=== PATIENT | female | born 1995 | race Caucasian/White ===

== ENCOUNTER 2020-07-20 17:04 | Emergency (ER) | payer MEDICAID ==
[2020-07-20] MEDS ORDERED: Amoxicillin/Clavulanate K 875-125 MG Tab PO ONE (17:45)
[2020-07-20] MEDS ORDERED: Ibuprofen 800 MG Tab PO ONE (17:45)
--- NOTE | 2020-07-20 17:46 | EDM.PDOC ---
ED HPI GENERAL MEDICAL PROBLEM - General Chief Complaint: General Stated Complaint: LUMP BEHIND RIGHT EAR CAUSING LOTS OF PAIN Time Seen by Provider: 07/20/20 17:30 Source of Information: Reports: Patient, RN, RN Notes Reviewed History Limitations: Reports: No Limitations - History of Present Illness INITIAL COMMENTS - FREE TEXT/NARRATIVE: Pt presents to ER with c/o that today at work she noticed a lump behind her right ear that is causing discomfort. Pain radiates to posterior right head, right jaw, and a little into the ear. Throbbing dull pain. Rates #8 but did not take anything at work to see if it would help. No fever or chills, denies dental problem or injury. Onset: Today, Gradual Duration: Constant, Getting Worse Location: Reports: Head, Neck Quality: Reports: Ache, Throbbing Severity: Severe Improves with: Reports: None Worsens with: Reports: None Associated Symptoms: Reports: No Other Symptoms Right Posterior Ear Pain Score (Numeric/FACES): 8 - Related Data Allergies Allergy/AdvReac Type Severity Reaction Status Date / Time No Known Allergies Allergy Verified 07/20/20 17:20 Home Meds: Home Meds Sertraline [Zoloft] 50 mg PO DAILY 07/20/20 [History] Past Medical History HEENT History: Reports: None Cardiovascular History: Reports: None Respiratory History: Reports: None Gastrointestinal History: Reports: None Genitourinary History: Reports: None SALES DEVELOPER History: Reports: None, Other (See Below) Other SALES DEVELOPER History: 07/06/2020 Musculoskeletal History: Reports: None Neurological History: Reports: None Psychiatric History: Reports: Depression Endocrine/Metabolic History: Reports: Obesity/BMI 30+ Hematologic History: Reports: None Immunologic History: Reports: None Oncologic (Cancer) History: Reports: None Dermatologic History: Reports: None Social & Family History - Family History Family Medical History: No Pertinent Family History - Tobacco Use Tobacco Use Status *Q: Current Every Day Tobacco User Years of Tobacco use: 8 Packs/Tins Daily: 0.5 - Living Situation & Occupation Occupation: Employed ED ROS GENERAL - Review of Systems Review Of Systems: Comprehensive ROS is negative, except as noted in HPI. ED EXAM, GENERAL - Physical Exam Exam: See Below Exam Limited By: No Limitations General Appearance: Alert, WD/WN, No Apparent Distress, Obese Eye Exam: Bilateral Eye: EOMI, Normal Inspection, PERRL Ears: Normal External Exam, Normal Canal, Hearing Grossly Normal, Normal TMs, Other (Right postauricular tender lymphadenopathy) Nose: Normal Inspection, Normal Mucosa, No Blood Throat/Mouth: Normal Inspection, Normal Lips, Normal Teeth, Normal Gums, Normal Oropharynx, Normal Voice, No Airway Compromise Head: Atraumatic, Normocephalic Neck: Supple, Full Range of Motion, Lymphadenopathy (R) Respiratory/Chest: No Respiratory Distress Cardiovascular: Regular Rate, Rhythm Neurological: Alert, Oriented, CN II-XII Intact, No Motor/Sensory Deficits Psychiatric: Normal Affect, Normal Mood Skin Exam: Warm, Dry, Intact, Normal Color, No Rash Course - Vital Signs Last Recorded V/S: Last Vital Signs Temp 98.1 F 07/20/20 17:15 Pulse 70 07/20/20 17:15 Resp 16 07/20/20 17:15 BP 120/82 07/20/20 17:15 Pulse Ox 99 07/20/20 17:15 - Orders/Labs/Meds Meds: Medications Discontinued Medications Generic Name Dose Route Start Last Admin Trade Name Tyler PRN Reason Stop Dose Admin Amoxicillin/Clavulanate Potassium 1 tab 07/20/20 17:45 Augmentin 875 Mg/125 Mg PO 07/20/20 17:46 ONETIME ONE Ibuprofen 800 mg 07/20/20 17:45 Motrin PO 07/20/20 17:46 ONETIME ONE Departure - Departure Time of Disposition: 17:52 Disposition: Home, Self-Care 01 Condition: Good Clinical Impression: Periauricular lymphadenopathy - Discharge Information *PRESCRIPTION DRUG MONITORING PROGRAM REVIEWED*: Not Applicable *COPY OF PRESCRIPTION DRUG MONITORING REPORT IN PATIENT PORSHA: Not Applicable Instructions: Lymphadenopathy Forms: ED Department Discharge Additional Instructions: Rx: Augmentin 875mg Rx: Ibuprofen 800mg Moist hot packs to the area as needed. Follow up in clinic if not improving in 2 to 3 days. Sepsis Event Note (ED) - Evaluation Sepsis Screening Result: No Definite Risk - Focused Exam Vital Signs: Vital Signs Temp Pulse Resp BP Pulse Ox 07/20/20 17:15 98.1 F 70 16 120/82 99
== END 2020-07-20 18:12 | disposition home or self-care (01) ==
LOC: DL.ED 17:04
DX: R59.0 Localized enlarged lymph nodes (principal); E66.9 Obesity, unspecified; Z72.0 Tobacco use; Z68.42 Body mass index [BMI] 45.0-49.9, adult; Z79.899 Other long term (current) drug therapy
CPT/HCPCS: 99282

== ENCOUNTER 2023-05-11 10:24 | Emergency (ER) | payer SELFPAY ==
[2023-05-11] MEDS ORDERED: Ibuprofen 600 MG Tab PO ONE (10:54)
== END 2023-05-11 11:20 | disposition home or self-care (01) ==
LOC: DL.ED 10:24
DX: S93.402A Sprain of unspecified ligament of left ankle, initial encounter (principal); R03.0 Elevated blood-pressure reading, without diagnosis of hypertension; E66.9 Obesity, unspecified; Z68.41 Body mass index [BMI] 40.0-44.9, adult; F17.210 Nicotine dependence, cigarettes, uncomplicated; Z86.16 Personal history of COVID-19; W10.8XXA Fall (on) (from) other stairs and steps, initial encounter; Y93.01 Activity, walking, marching and hiking
CPT/HCPCS: 73610; 99283; A9270